=== PATIENT | female | born 1975 | race Caucasian/White ===

== ENCOUNTER 2023-11-06 20:16 | Emergency (ER) | payer OTHER, SELFPAY ==
[2023-11-06 20:20] VITALS: BP 139/110
--- NOTE | 2023-11-06 20:31 | ED.GENMED ---
History of Present Illness
General
Chief Complaint: Crisis Evaluation
Source: patient
Exam Limitations: none
Time Seen by Provider: 11/06/23 20:26
Travel History
Have you had any contact with someone who has COVID-19?: No
Do you have any symptoms of coronavirus? Fever > 100 degrees, chills, cough, shortness of breath, sore throat, loss of taste or smell, muscle aches, or headache?: No
History of Present Illness
History of Present Illness:
See MDM
Past History
Past History
ED Past Medical History: None
ED Past Surgical History: Other (Upper jaw surgery from a broken jaw 1 month ago)
Social History
Tobacco: Smoker
Alcohol: None
Drug: Marijuana
Personal: Single
Employment: Employed
Family History
Family History: Hypertension
Phy Exam
Physical Exam
Physical Exam:
See MDM
Course
Vital Signs
Initial and Last Documented VS:
Initial Vital Signs
Temp Pulse Resp BP Pulse Ox
99.0 F 95 19 139/110 99
11/06/23 20:20 11/06/23 20:20 11/06/23 20:20 11/06/23 20:20 11/06/23 20:20
Last Documented Vital Signs
Temp Pulse Resp BP Pulse Ox
99.0 F 95 19 139/110 99
11/06/23 20:20 11/06/23 20:20 11/06/23 20:20 11/06/23 20:20 11/06/23 20:20
MDM/Problems Addressed
Differential Diagnosis Includes:
HPI and MDM Narrative:
48-year-old female presenting in police custody for medical clearance. Patient states that she has bugs all over her skin. She was sent in for evaluation. Per police, someone called on her behalf and she was crying in a car and she was found to
have warrants. Patient is fixated on explaining her living situation. [place] out of her [place] and she is now homeless. Patient has bizarre affect. Patient presents as if she is currently on
methamphetamine. She is picking her skin. Patient is very agitated and has pressured speech. She was denying suicidal homicidal thoughts to me. She does admit to drug abuse but quickly states 'I am not a meth head!' without me even mentioning
my concern that she is on drugs.
Regardless, patient complains of bugs crawling on her skin. I do not appreciate any bugs on her skin. Patient is showing signs of psychogenic formication and is medically cleared to be taken by police
Physical exam
General: Agitated, pressured speech. In no acute distress
HEENT: protecting airway
Neck: appears supple
CV: No evidence of cyanosis
Resp: No accessory muscle use
Abd: Non-distended
Extremities: No deformities
Neuro: alert
Psych: Agitated, pressured speech
Skin: Evidence of self picking. No evidence of bugs
Problems Addressed including Acute and Chronic Conditions affecting care:
1. Formication
Acuity: acute
Prognosis: stable
Details: Likely in the setting of current drug use versus her underlying mental health issues. No evidence of bugs on exam
Differential Diagnosis (but not limited to): Scabies, drug abuse, psychogenic formication
Drug therapy (if applicable): OTC meds, please see d/c instruction regarding Rx drugs
Amount and/or Complexity of Data Reviewed
Clinical info obtained from: Patient
External data reviewed: N/A
Labs I independently reviewed (but not limited to): N/A
Radiology: N/A
Pulse Ox: not hypoxic
EKG independently reviewed: N/A
Assistant Professor Of Dietetics: N/A
Critical Care: N/A
Risk of Complication:
Social Determinants of health: Poor social support
Discussed with other providers: N/A
Escalation of Care includes Admit/Obs: After being observed in the Emergency Department, pt stable for discharge to long term
Occasional wrong word or 'sound a like' substitutions may have occurred due to the inherent limitations of voice recognition software. Read the chart carefully and recognize, using context, where substitutions have occurred.
*Critical Care Note
Total Time (30-74mins, 75-104mins- exclusive of procedures): Not Applicable
ED Attending Note
-
Portions of this chart may have been created with voice recognition software.� Occasional wrong word or��sound alike� substitutions may have occurred due to the inherent limitations of voice recognition software.
Discharge Plan
Departure
Patient Disposition: [facility]
Date of Disposition: 11/06/23
Time of Disposition: 20:32
Patient with high blood pressure during this ER visit?: Yes
Discharge Problem:
Psychogenic formication
Instructions: BLOOD PRESSURE
Prescriptions:
No Action
prednisone 10 MG tablet
10 mg PO .TAPER Qty: 30 0RF
Rx Instructions:
Take 49bmb5ijtc, 53lmg9btmp, 33bpg5afac, 66vde2prny.
hydrocodone-acetaminophen [Vicodin] 1 EACH tablet
1 tab PO Q6HPRN PRN (Reason: pain) Qty: 10 0RF
hydrocodone-acetaminophen [Vicodin] 1 EACH tablet
1 ea PO Q4HPRN PRN (Reason: pain) Qty: 15 0RF
tramadol 50 MG tablet
50 mg PO Q6HPRN PRN (Reason: pain) Qty: 20 0RF
penicillin V potassium 500 MG tablet
500 mg PO QID Qty: 40 0RF
penicillin V potassium 500 MG tablet
500 mg PO Q6 Qty: 40 0RF
Activity Restrictions/Additional Instructions:
Janelle Fontana is medically cleared for incarceration.
Interventions
Interventions:
*Risk Screen - Suicide Last Done: 11/06/23 20:20
*General Assessment Last Done: 11/06/23 20:20
*Neglect/Abuse Screening Last Done: 11/06/23 20:20
ED- Fall Risk Assessment Last Done: 11/06/23 20:26
*ED COVID-19 Vaccine History Last Done: 11/06/23 20:20
*Nursing Disposition Last Done: 11/06/23 20:39
ED-Psychological Assessment Last Done: 11/06/23 20:26
Discharge Date and Time
Print Language: IRISH
== END 2023-11-06 20:39 ==
LOC: EMR 20:16
PROVIDERS: EMERGENCY PHYSICIAN Student in an Organized Health Care Education/Training Program
DX: F45.8 Other somatoform disorders (principal); R03.0 Elevated blood-pressure reading, without diagnosis of hypertension; F17.200 Nicotine dependence, unspecified, uncomplicated
CPT/HCPCS: 99283